=== PATIENT | male | born 1950 | race Caucasian/White ===

== ENCOUNTER 2020-04-18 10:25 | Emergency (ER) | payer MEDICARE, OTHER ==
[~2020-04-18] VITALS: Ht 177.8 cm; Wt 133.8 kg
[2020-04-18] MEDS ORDERED: ASA81BEC PO (10:42)
[2020-04-18] MEDS ORDERED: CARTIA XT120 M1 PO (10:42)
[2020-04-18] MEDS ORDERED: LOPRESSOR50 MG PO (10:42)
[2020-04-18] MEDS ORDERED: LEVO-T100 MCG PO (10:42)
[2020-04-18] MEDS ORDERED: METFORMIN HCL500 M3 PO (10:42)
[2020-04-18] MEDS ORDERED: COZAAR 25 MG TA25 M1 PO (10:43)
[2020-04-18] MEDS ORDERED: HYDROCHLOROTH12.5 M1 PO (10:43)
[2020-04-18 10:55] LABS: ABSOLUTE BASOPHILS 0.1 thou/uL (0.0-0.2); ABSOLUTE EOSINOPHILS 0.2 thou/uL (0.0-0.7); ABSOLUTE MONOCYTES 0.6 thou/uL (0.0-1.2); ABSOLUTE NEUTROPHILS 6.2 thou/uL (1.6-8.1); BASOPHILS 1.2 %; EOSINOPHILS 2.2 %; HEMOGLOBIN 14.9 gm/dL (14.0-18.0); MCH 32.4 pg (26.0-34.0); MCHC 34.6 g/dL (28.0-37.0); MCV 93.6 fL (80.0-100.0); MONOCYTES 6.4 %; MPV 7.7 fl. (7.2-11.1); NUCLEATED RBCS 0 /100WBC; PLATELET COUNT* 195 thou/uL (150-400); POLYS 68.2 %; RBC 4.59 mil/uL (4.50-6.00); WBC 9.1 thou/uL (4.0-11.0)
[2020-04-18 10:55] LABS: URINE BLOOD 3+ (Negative); URINE CLARITY SL CLOUDY; URINE COLOR BROWN; URINE GLUCOSE-RANDOM NEGATIVE (Negative); URINE KETONES NEGATIVE (Negative); URINE LEUKOCYTES-REFLEX NEGATIVE (Negative); URINE NITRITE-REFLEX NEGATIVE (Negative); URINE PROTEIN 2+ (Negative); URINE SPECIFIC GRAVITY >= 1.030 (1.005-1.030); URINE UROBILINOGEN 0.2 E.U./dl (0.2-1.0)
[2020-04-18 10:58] LABS: ICTOTEST (BILI CONFIRMATORY) Negative (Negative); URINE BILIRUBIN 1+ (Negative)
[2020-04-18 10:59] LABS: SQUAMOUS 0-3 Few /LPF (0-3)
[2020-04-18 11:00] LABS: BACTERIA-REFLEX >30 Many /HPF (None Seen); CASTS None Seen /LPF (None Seen); CRYSTALS None Seen /LPF (None Seen); MUCUS >6 Heavy strn/LPF (None Seen); URINE RBC >20 Many /HPF (0-2); URINE WBC-REFLEX 0-5 Rare /HPF (0-5)
[2020-04-18 11:06] LABS: CALCIUM 8.5 mg/dL (8.5-10.1); CREATININE 1.1 mg/dL (0.6-1.3); POTASSIUM 4.1 mmol/L (3.5-5.1)
[2020-04-18 11:16] LABS: ALBUMIN 3.6 g/dL (3.4-5.0); TOTAL BILIRUBIN 0.6 mg/dL (<0.1-1.0); TOTAL PROTEIN 7.3 g/dL (6.4-8.2)
[2020-04-18] MEDS ORDERED: IBUPROFEN 800800 MG PO (12:06)
[2020-04-18] MEDS ORDERED: CIPROFLOXACIN500 M1 PO (12:06)
[2020-04-18] MEDS ORDERED: FLOMAX0.4 MG PO (12:06)
[2020-04-18] MEDS ORDERED: PERCOCET 5-3251 EACH PO (12:06)
[2020-04-18 12:15] VITALS: BP 125/56
== END 2020-04-18 12:15 | disposition home or self-care (01) ==
LOC: M.ERS 10:25
PROVIDERS: Family Medicine
DX: N20.0 Calculus of kidney (principal); G47.30 Sleep apnea, unspecified; E03.9 Hypothyroidism, unspecified; E11.9 Type 2 diabetes mellitus without complications; I10 Essential (primary) hypertension; Z95.5 Presence of coronary angioplasty implant and graft

== ENCOUNTER 2020-05-24 15:13 | Observation (INO) | payer MEDICARE, OTHER ==
[~2020-05-24] VITALS: Ht 180.3 cm; Wt 135.2 kg
[~2020-05-24 15:13] MED LIST: ASA81BEC PO; CARTIA XT120 M1 PO; CIPROFLOXACIN500 M1 PO; COZAAR 25 MG TA25 M1 PO; FLOMAX0.4 MG PO; HYDROCHLOROTH12.5 M1 PO; IBUPROFEN 800800 MG PO; LEVO-T100 MCG PO; LOPRESSOR50 MG PO; METFORMIN HCL500 M3 PO; PERCOCET 5-3251 EACH PO
[2020-05-24 15:17] VITALS: BP 149/88
[2020-05-24 15:38] LABS: ABSOLUTE EOSINOPHILS 0.2 thou/uL (0.0-0.7); ABSOLUTE LYMPHOCYTES 1.8 thou/uL (0.8-5.3); ABSOLUTE MONOCYTES 0.7 thou/uL (0.0-1.2); ABSOLUTE NEUTROPHILS 6.1 thou/uL (1.6-8.1); BASOPHILS 0.5 %; EOSINOPHILS 2.4 %; HEMATOCRIT 37.1 % (42.0-52.0); HEMOGLOBIN 12.7 gm/dL (14.0-18.0); LYMPHOCYTES 20.6 %; MCH 31.8 pg (26.0-34.0); MCHC 34.2 g/dL (28.0-37.0); MONOCYTES 7.8 %; MPV 7.9 fl. (7.2-11.1); NUCLEATED RBCS 0 /100WBC; PLATELET COUNT* 189 thou/uL (150-400); POLYS 68.7 %; RDW-CV 12.9 % (10.5-14.5); WBC 8.9 thou/uL (4.0-11.0)
[2020-05-24 15:53] LABS: PROTIME 11.1 Seconds (9.20-11.50)
[2020-05-24 15:56] LABS: CALCIUM 9.2 mg/dL (8.5-10.1); POTASSIUM 4.6 mmol/L (3.5-5.1)
[2020-05-24 16:11] LABS: ALBUMIN 3.6 g/dL (3.4-5.0); TOTAL BILIRUBIN 0.4 mg/dL (<0.1-1.0); TOTAL PROTEIN 7.2 g/dL (6.4-8.2)
[2020-05-24 19:14] VITALS: BP 152/75
[2020-05-24 21:47] VITALS: BP 148/70
[2020-05-24 21:55] VITALS: BP 143/58
[2020-05-24 23:55] VITALS: BP 124/74
[2020-05-25] VITALS (8 sets, daily range): BP systolic 119–146; BP diastolic 59–80
--- NOTE | 2020-05-25 10:53 | NUR ---
ASSUMED CARE OF PT AT 0730. PT SITTING UP IN THE RECLINER. A&0X4, DENIES ANY PAIN OR SHORTNESS OF BREATH AT THIS TIME. TRACING SB ON THE SHEET TURNER. RATE IN THE UPPER 50'S. LANIE MARQUEZ, CARDIOLOGY MERGERS AND ACQUISITIONS CONSULTANT, HERE TO SEE PT. DIET RESTARTED. PT ON RA SAT MID 90'S. PT USES HOME CPAP AT [facility]. PT UP AD JOANIE IN ROOM. PT GOAL FOR TODAY IS REMAIN FREE FROM CHEST PAIN, ECHO AND DISCHARGE PLANNING. AM ASSESSMENT CHARTED. MEDICATIONS PER JUL. PT REPOSITIONS SELF. HOURLY ROUNDING OBSERVED. BED IN LOW POSITION. CALL LIGHT WITHIN REACH. WILL CONTINUE PLAN OF CARE.
--- NOTE | 2020-05-25 13:12 | NUR ---
Pt is A&O. Resides at home with . Independent. Pt has a home cpap. No hx of HH or SNF. Anticipate dc to home tomorrow, plan cardiac rehab at dc, hx of cardiac rehab at [facility] towards the end of 2019. Pt may have a stress test today.
--- NOTE | 2020-05-25 14:10 | EKG ---
[place] [address] ELECTROCARDIOGRAM REPORT Name: PRADIP RODRIGUEZNIS Hipolito Room: [address]#: [id number] Admission: 05/24/20 Attend Phys: Maribel Mcdonald, Discharge: Date of : 54 Date of Service: 05/25/20 1330 Report #: [id number] THIS REPORT FOR: //name// [facility] Test Date: 2020-05-25 Test Time: 13:30:33 Pat Name: WASHINGTON RODRIGUEZ Department: Room: [address] Gender: M Multiple Resaw Operator: : 1950 Requested By: Bre Barros Order Number: [id number] Reading MD: Marco Mandujano Measurements Intervals Wallace Rate: 55 P: 46 VT: 188 QRS: 14 QRSD: 90 T: 29 QT: 419 QTc: 401 Interpretive Statements Sinus rhythm Abnormal R-wave progression, early transition Baseline wander in lead(s) V1 Compared to ECG 05/24/2020 15:24:19 Sinus tachycardia no longer present Electronically Signed On 05-25-2020 14:10:40 [employer] by Marco Mandujano [email or web address] <ELECTRONICALLY SIGNED> By: Marco Mandujano MD, FACC 05/25/20 1410 1330 1330 Marco Mandujano MD, FACC /EPI
--- NOTE | 2020-05-25 15:16 | EKG ---
[place] [address] ELECTROCARDIOGRAM REPORT Name: WASHINGTON RODRIGUEZ Room: [address]#: [id number] Admission: 05/24/20 Attend Phys: Maribel Mcdonald, Discharge: Date of : 54 Date of Service: 05/24/20 1524 Report #: [id number] THIS REPORT FOR: //name// [facility] ED Test Date: 2020-05-24 Test Time: 15:24:19 Pat Name: WASHINGTON RODRIGUEZ Department: Room: [facility] Gender: M Director Cardiology: BRIGETTE : 1950 Requested By: Maximiliano Hobbs Order Number: [id number] MD: Marco Mandujano Measurements Intervals Blair Rate: 148 P: 0 NH: 72 QRS: 5 QRSD: 84 T: 36 QT: 263 QTc: 413 Interpretive Statements Atrial flutter with 2:1 conduction No previous ECG available for comparison Electronically Signed On 05-25-2020 13:11:38 MANAGER MARKETING by Carlitos Bah Electronically Signed On 05-25-2020 15:16:27 MANAGER [employer] by Marco Mandujano [email or web address] <ELECTRONICALLY SIGNED> By: Marco Mandujano MD, FACC 05/25/20 1516 1524 1524 Marco Mandujano MD, FAC /EPI
--- NOTE | 2020-05-25 15:41 | 2DMMODE ---
[place] [address] 2 D/M-MODE ECHOCARDIOGRAM Name: WASHINGTON RODRIGUEZ Room: [address] MLuisRLuis#: [id number] Admission: 05/24/20 Attend Phys: Maribel Mcdonald, Discharge: Date of : 54 Date of Service: 05/25/20 1540 Report #: [id number] THIS REPORT FOR: cc: Yenni Ford MD, Lin W. MD Liston, Michael J. MD [facility] ~ APPROVED REPORT Study performed: 05/25/2020 13:42:50 EXAM: Comprehensive 2D, Doppler, and color-flow Echocardiogram Patient Location: In-Patient Room #: [facility] Status: routine BSA: 2.50 HR: 55 bpm BP: 126/62 mmHg Rhythm: NSR Other Information Study Quality: Good Indications Atrial Fibrillation Tachycardia Chest Pain 2D Dimensions IVSd: 12.12 (7-11mm) LVOT Diam: 20.78 (18-24mm) LVDd: 50.39 mm PWd: 10.92 (7-11mm) Ascending Ao: 38.08 (22-36mm) LVDs: 27.46 (25-40mm) Aortic Root: 32.50 mm Volumes Left Atrial Volume (Systole) LA ESV Index: 22.20 mL/m2 Aortic Valve AoV Peak Darrell.: 1.31 m/s AO Peak Gr.: 6.84 mmHg LVOT Max P.80 mmHg AO Mean Gr.: 3.79 mmHg LVOT Mean P.01 mmHg LVOT Max V: 1.10 m/s AO V2 VTI: 26.71 cm LVOT Mean V: 0.63 m/[place] [address] 2 D/M-MODE ECHOCARDIOGRAM Name: WASHINGTON RODRIGUEZ Room: [address]#: [id number] Admission: 05/24/20 Attend Phys: Maribel Mcdonald, Discharge: Date of : 54 Date of Service: 05/25/20 1540 Report #: [id number] NOEL (VTI): 2.99 cm2 LVOT V1 VTI: 23.52 cm Mitral Valve E/A Ratio: 1.22 MV Decel. Time: 221.70 ms MV E Max Darrell.: 0.82 m/s MV PHT: 64.29 ms MVA (PHT): 3.42 cm2 TDI E/Lateral E': 6.83 E/Medial E': 6.31 Medial E' Darrell.: 0.13 m/s Lateral E' Darrell.: 0.12 m/s Pulmonary Valve PV Peak Darrell.: 1.08 m/s PV Peak Gr.: 4.65 mmHg Tricuspid Valve RAP Estimate: 5.00 mmHg TR Peak Gr.: 21.80 mmHg RVSP: 26.00 mmHg PA Pressure: 26.00 mmHg Left Ventricle The left ventricle is normal size. There is normal LV segmental wall motion. There is normal left ventricular wall thickness. Left ventricular systolic function is normal. LVEF is 55-60%. Grade II - pseudonormal filling dynamics. Right Ventricle Right ventricle is mildly dilated. The right ventricular systolic function is normal. Atria Left atrium is mildly dilated. Right atrium is mildly dilated. Aortic Valve The aortic valve is normal in structure. Trace aortic regurgitation. There is no aortic valvular stenosis. Mitral Valve The mitral valve is normal in structure. There is no mitral valve regurgitation noted. No evidence of mitral valve stenosis. Tricuspid Valve The tricuspid valve is normal in structure. [place] [address] 2 D/M-MODE ECHOCARDIOGRAM Name: WASHINGTON RODRIGUEZ Room: [address]#: [id number] Admission: 05/24/20 Attend Phys: Maribel Mcdonald, Discharge: Date of : 54 Date of Service: 05/25/20 1540 Report #: [id number] regurgitation. No pulmonary hypertension. Pulmonic Valve The pulmonary valve is normal in structure. Mild pulmonic regurgitation. Great Vessels The aortic root is normal in size. IVC is normal in size and collapses >50% with inspiration. Pericardium There is no pericardial effusion. <Conclusion> The left ventricle is normal size. There is normal left ventricular wall thickness. Left ventricular systolic function is normal. LVEF is 55-60%. Grade II - pseudonormal filling dynamics. Right ventricle is mildly dilated. Left atrium is mildly dilated. Right atrium is mildly dilated. Trace aortic regurgitation. Mild tricuspid regurgitation. No pulmonary hypertension. IVC is normal in size and collapses >50% with inspiration. <ELECTRONICALLY SIGNED> By: Marco Mandujano MD, FACC 05/25/20 1540 1540 1540 Marco Mandujano MD, FACC /INF
[2020-05-25] MEDS ORDERED: FLECAINIDE ACET50 M1 PO (15:51)
[2020-05-25] MEDS ORDERED: METOPROLOL TART25 MG PO (15:51)
[2020-05-25] MEDS ORDERED: ELIQUIS5 MG PO (15:51)
--- NOTE | 2020-05-25 17:49 | NUR ---
CARDIOLOGY SEEN PT. RECORDS OBTAINED. ECHO COMPLETE. OK FOR DC PER CARDIOLOGY. PT STARTED ON FLECAINIDE AND ELIQUIS. DISCHARGE ORDERS RECEIVED. DISCHARGE INSTRUCTIONS, CARE NOTES, SCRIPTS AND FOLLOW UP APPTS GIVEN TO PT. PT COMMUNICATES UNDERSTANDING OF DISCHARGE TEACHING. IV'S AND PHOTOCOPIER TECHNICIAN REMOVED. PT DISCHARGED WITH ALL BELONGINGS AND PAPERWORK VIA WHEELCHAIR WITH NURSING STAFF TO SPOUSE PERSONAL VEHICLE.
[2020-05-26 04:06] LABS: GLYCOHEMOGLOBIN (HGB A1C) 6.2 % (4.8-5.6)
== END 2020-05-25 17:53 | disposition home or self-care (01) ==
LOC: M.ERS 15:13 → M.2W 17:07 → M.TBA-ER 17:07 → M.2W 21:55
PROVIDERS: Emergency Medicine Emergency Medical Services; ADMIT Internal Medicine; ATTEND Internal Medicine
DX: R07.89 Other chest pain (principal); R00.0 Tachycardia, unspecified; I48.0 Paroxysmal atrial fibrillation; I48.92 Unspecified atrial flutter; I25.10 Atherosclerotic heart disease of native coronary artery without angina pectoris; E78.5 Hyperlipidemia, unspecified; E11.9 Type 2 diabetes mellitus without complications; N20.0 Calculus of kidney; I10 Essential (primary) hypertension; G47.33 Obstructive sleep apnea (adult) (pediatric); Z79.82 Long term (current) use of aspirin; Z79.84 Long term (current) use of oral hypoglycemic drugs; Z79.899 Other long term (current) drug therapy; Z20.828 Contact with and (suspected) exposure to other viral communicable diseases

== ENCOUNTER → 2021-02-14 | Outpatient (CLI) | payer MEDICARE, OTHER ==
[~2021-02-14] MED LIST changes: +ELIQUIS5 MG PO; +FLECAINIDE ACET50 M1 PO; +METOPROLOL TART25 MG PO
== END ==
LOC: M.LAB 08:53
DX: R19.7 Diarrhea, unspecified (principal); R10.9 Unspecified abdominal pain